=== PATIENT | male | born 1985 | race African-American/Black ===

== ENCOUNTER 2021-05-12 07:37 | Emergency (ER) | payer SELFPAY ==
[~2021-05-12] VITALS: Ht 185.4 cm; Wt 150.0 kg
[2021-05-12] MEDS ORDERED: SODIUM CHLORIDE 0.9% 1,000 ML IV ONE (08:15)
[2021-05-12] MEDS ORDERED: LORAZEPAM 0.5MG TABLET PO ONE (09:15)
[2021-05-12 09:19] LABS: BASOPHILS % 0.3 % (0.0-2.0); EOSINOPHILS % 1.8 % (0.0-5.0); HEMATOCRIT. 45.1 % (42.0-52.0); HEMOGLOBIN. 14.9 g/dL (14.0-18.0); LYMPHOCYTES % 37.8 % (20.0-50.0); MEAN CORPUSCULAR HEMOGLOBIN 29.6 pg (28.0-32.0); MEAN CORPUSCULAR VOLUME 89.2 fL (80.0-94.0); MONOCYTES % 7.3 % (2.0-8.0); NEUTROPHILS % 52.8 % (40.0-76.0); PLATELET 286 x1000/uL (130-400); RED BLOOD CELL COUNT 5.06 mill/uL (4.7-6.1); RED CELL DISTRIBUTION WIDTH 13.9 % (11.6-14.6)
[2021-05-12 11:06] LABS: CHLORIDE 110 mEq/L (98-107)
[2021-05-12 11:10] LABS: ETHANOL BLOOD < 10 mg/dL
[2021-05-12 12:09] VITALS: BP 163/96
[2021-05-12 12:34] LABS: *AMPHETAMINES SCREEN URINE NEGATIVE (NEGATIVE); *BARBITURATES SCREEN URINE NEGATIVE (NEGATIVE); *BENZODIAZEPINES SCREEN URINE NEGATIVE (NEGATIVE); CANNABINOID URINE SCREEN PRESUMTIVE POSITIVE (NEGATIVE); METHADONE URINE SCREEN NEGATIVE (NEGATIVE); OPIATES URINE SCREEN NEGATIVE (NEGATIVE)
[2021-05-12] MEDS ORDERED: LORA-249 MT (12:35)
[2021-05-12 12:37] LABS: *COCAINE SCREEN URINE NEGATIVE (NEGATIVE); PHENCYCLIDINE URINE SCREEN NEGATIVE (NEGATIVE)
== END 2021-05-12 12:59 | disposition home or self-care (01) ==
LOC: ER 07:37 → EDBD 07:37 → ER 12:59
DX: R00.2 Palpitations (principal); Z56.89 Other problems related to employment
CPT/HCPCS: 36415; 71045; 80053; 80305; 80320; 83690; 83880; 84443; 84484; 85025; 93005; 99285; J7030; G0480